=== PATIENT | male | born 1970 ===

== ENCOUNTER 2021-04-05 14:59 | Emergency (ER) | payer SELFPAY ==
[2021-04-05 16:00] LABS: Bilirubin Negative (Negative); Blood, Urine Negative (Negative); Clarity Clear (Clear); Glucose, Urine (Dipstick) Normal (Negative); Ketone, Urine Negative (Negative); Leukocyte Negative Leu/uL (Negative); Nitrite Negative (Negative); Protein, Urine (Dipstick) 10 mg/dL (Neg-Trace); Specific Gravity, Urine 1.027 (1.002-1.036); Urobilinogen 6 mg/dL (Less than 2)
[2021-04-07 16:22] LABS: Chlam.trachomatis by PCR,Urine Not Detected (NotDetected)
== END 2021-04-05 16:42 | disposition home or self-care (01) ==
LOC: ERS 14:59
DX: Z03.89 Encounter for observation for other suspected diseases and conditions ruled out (principal); F17.210 Nicotine dependence, cigarettes, uncomplicated
CPT/HCPCS: 81003; 87086; 87491; 87591; 99283

== ENCOUNTER 2021-06-06 08:53 | Emergency (ER) | payer SELFPAY | END 2021-06-06 09:44 | disposition home or self-care (01) | LOC: ERS 08:53 | DX: I10 Essential (primary) hypertension (principal); N48.89 Other specified disorders of penis; F17.210 Nicotine dependence, cigarettes, uncomplicated | CPT/HCPCS: 99283 ==